=== PATIENT | female | born 1930 | race Caucasian/White ===

== ENCOUNTER → 2017-05-10 | Outpatient (CLI) | payer MEDICARE, BC | END | disposition home or self-care (01) | LOC: PTMAIN 11:29 | PROVIDERS: ATTEND Otolaryngology | DX: K21.9 Gastro-esophageal reflux disease without esophagitis (principal); J37.0 Chronic laryngitis | CPT/HCPCS: 31579 ==

== ENCOUNTER 2017-05-28 08:17 | Day surgery (SDC) | payer MEDICARE, BC ==
[2017-05-21 12:56] VITALS: BMI 26.2
--- NOTE | 2017-05-28 06:18 | HP ---
HISTORY AND PHYSICAL CHIEF COMPLAINT: Laryngeal lesion. HISTORY OF PRESENT ILLNESS: This patient is a pleasant 86-year-old female who was recently seen in my office complaining of having a constant foreign body sensation in her throat. The patient has a history of gastroesophageal reflux disorder and is a nonsmoker and never has used tobacco products. She denies any pain or any referred otalgia. At the time that she was seen in my office, clinical examination which included an indirect laryngoscopy as well as a videostroboscopy revealed evidence of a large polyp like lesion, which appears to be mobile and located on the right aryepiglottic fold. Recommend the patient undergo removal of this lesion and biopsy and subsequently laser of the lesion under general anesthesia. PAST MEDICAL HISTORY: Past medical history reveals that the patient has an allergy to IODINE and CONTRAST MEDIA. CURRENT MEDICATIONS: Current medications include Atorvastatin, one baby aspirin daily, Prilosec. PREVIOUS SURGERIES: Previous surgeries include cholecystectomy, hysterectomy, tonsillectomy and adenoidectomy, cataract surgery, and hemorrhoid surgery. REVIEW OF SYSTEMS: Review of systems reveals the cardiovascular system is negative. Respiratory systems is negative. Gastrointestinal system is positive for GERD, gastroesophageal reflux disorder. Metabolic endocrine system is positive for hypercholesterolemia. The remainder of the review of systems is unremarkable. PHYSICAL EXAM: This patient is a very pleasant 86-year-old female who was alert and cooperative. HEENT EXAMINATION: Patient is normocephalic. Tympanic membranes are normal. Middle ear spaces are free of any fluid or infection. Pupils are equal, round, react to light and accommodation. Extraocular movements within normal limits. Intranasal examination reveals moderate to severe septal deviation with bilateral compensatory hypertrophy of the inferior turbinates. Examination of the oropharynx and cranial nerves 2 through 12 are within normal limits. Examination of the hypopharynx and findings of the larynx are as described above and will not be repeated here. Palpation neck and remainder of the head and neck exam is unremarkable. CHEST/CARDIOVASCULAR: Both lung robin are clear to percussion and auscultation. Patient in regular sinus rhythm. S1 and S2 are present without evidence of any murmurs, S3s or S4s. Peripheral pulses are bilaterally symmetrical and within normal limits. ABDOMEN: There is no evidence the masses megaly or tenderness. The abdomen is soft. Skin is unremarkable. Musculoskeletal and neurological are within normal limits. PELVIC RECTAL EXAM: The pelvic rectal examination is deferred at this time because the patient has this done on a regular basis at her family physician's office. The remainder of physical exam is essentially unremarkable. IMPRESSION: Lesion of the larynx/hypopharynx. PLAN: The patient is scheduled undergo a suspension microlaryngoscopy, biopsy of lesion of the larynx/hypopharynx and CO2 laser of lesion of the larynx/hypopharynx under general anesthesia in the a.m. ATTENTION RNS IN THE PRE-SURGICAL AREA: I have ordered for this patient to receive 1000 mg of Ofirmev IV to be given once an intravenous line has been established. I have not ordered any pre-surgical prophylactic antibiotics for this patient. If the pharmacy department sends any pre-surgical prophylactic antibiotics to the pre-surgical area for this patient, that order should be cancelled and the medication returned to the pharmacy department. Please make sure that the patient's account is credited appropriately I have discussed the risks, benefits and alternative therapies for the above-mentioned procedure and for both sedation/analgesia as well as necessary blood product administration, if indicated, as they pertain to this patient. The patient has indicated his or her understanding and acceptance of the risks and procedures discussed. MMODL / IJN: [id number] /
[~2017-05-28 08:17] MED LIST: DEXAMETHASONE SOD PHOSPHATE 10 MG/ML 1 ML VIAL IV ONE; LACTATED RINGERS 1,000 ML IV SCH; MIDAZOLAM 2 MG/2 ML VIAL IV PRN; ONDANSETRON 4 MG/2 ML VIAL IVP ONE; Pre Op ABX Message 1 EACH MISC MISCELLANE ONE; SCOPOLAMINE 1.5MG/72HR PATCH TRANSDERM ONE; fentaNYL (PF) 50 MCG/ML 2 ML AMP IV PRN
[2017-05-28] MEDS ORDERED: LIDOCAINE 1% 20 ML VIAL (10MG/ML) FOR IV START INTRADERMA ONE (09:05)
[2017-05-28] MEDS ORDERED: ACETAMINOPHEN IV (For NPO) 1,000 MG/100 ML VIAL IVPB ONE (09:15)
[2017-05-28] MEDS ORDERED: PROPOFOL 10 MG/ML 20 ML VIAL IV ONE (10:02)
[2017-05-28] MEDS ORDERED: ROCURONIUM BROMIDE 10 MG/ML 10 ML VIAL IV ONE (10:02)
[2017-05-28] MEDS ORDERED: ePHEDrine SULFATE/0.9% NACL/PF 50 MG/5 ML SYRINGE IV ONE (10:02)
[2017-05-28] MEDS ORDERED: MIDAZOLAM 2 MG/2 ML VIAL ONE (10:02)
[2017-05-28] MEDS ORDERED: LIDOCAINE 1% INJ 10MG/ML (20 ML MDV) ONE (10:02)
[2017-05-28] MEDS ORDERED: METHYLENE BLUE 10 MG/ML (10 ML VIAL) ONE (10:02)
[2017-05-28] MEDS ORDERED: NEOSTIGMINE 1 MG/ML 10 ML VIAL ONE (10:02)
[2017-05-28] MEDS ORDERED: GLYCOPYRROLATE 0.2 MG/ML 2 ML VIAL ONE (10:02)
[2017-05-28] MEDS ORDERED: fentaNYL (PF) 50 MCG/ML 2 ML AMP ONE (10:02)
[2017-05-28] MEDS ORDERED: ACETAMINOPHEN IV (For NPO) 1,000 MG in EMPTY BAG 1 BAG IVPB ONE (10:35)
[2017-05-28 11:38] VITALS: TEMP 97.6
[2017-05-28] MEDS ORDERED: MORPHINE SULFATE 10 MG/ML SYRINGE IVP ONE (11:57)
[2017-05-28] MEDS ORDERED: ONDANSETRON 4 MG/2 ML VIAL IVP ONE (11:58)
[2017-05-28] MEDS ORDERED: LACTATED RINGERS 1,000 ML IV ONE (12:15)
[2017-05-28 12:34] VITALS: RESP 16
[2017-05-28 13:06] VITALS: BP 123/79; PULSE 94
--- NOTE | 2017-05-28 20:21 | OP ---
OPERATIVE REPORT DATE OF SURGERY: 05/28/2017. PREOPERATIVE DIAGNOSIS: Lesion of the larynx/hypopharynx (right aryepiglottic fold). POSTOPERATIVE DIAGNOSIS: Lesion of the larynx/hypopharynx (right aryepiglottic fold); final pathology pending. ANESTHESIA: General. OPERATIVE PROCEDURE: Suspension microlaryngoscopy with biopsy of lesion of the right aryepiglottic fold (larynx/hypopharynx) and CO2 lasering of the same lesion of hypopharynx. SURGEON: Dr. Isaac. COMPLICATIONS: None. OPERATIVE PROCEDURE: The patient was placed on the operating table in supine position. After uneventful induction of endotracheal intubation, satisfactory general anesthesia was obtained. Next the patient was draped in the usual and customary fashion. Following this, after insertion of a mouth guard and with care taken not to injure the patient's lips or teeth, the anterior commissure laryngoscope was introduced into the oropharynx with some difficulty, because of the patient's small mouth opening, the right and left piriform sinuses, base of tongue, valleculae and epiglottis were inspected. Next the tip of the laryngoscope was placed at the laryngeal introitus and the Lewy apparatus was attached to the handle of the laryngoscope and the laryngoscope was suspended on the patient's chest. Next, using the Zeiss operating microscope, inspection of the patient's true vocal cords revealed them to be completely free of any suspicious lesions. The laryngoscope was then backed out slightly, and with a slight amount of pressure on the patient's larynx, pushing it medially, this exposed the lesion in question, which appeared to be located on the right aryepiglottic fold. This lesion was grasped with a pair of up-biting forceps and several/multiple biopsies of the lesion were obtained and sent to Pathology in formalin for permanent sectioning. The remaining portion of the lesion was vaporized using the CO2 laser set on a 7-watt setting. Further inspection revealed no other suspicious lesions. The patient was given 10 mg of Decadron intraoperatively to reduce any postoperative edema. At this point the procedure was terminated. There were no intraoperative complications. The patient tolerated the procedure well and was returned to the recovery room in satisfactory condition. Final pathology is pending. MMODL / IJN: [id number] /
== END 2017-05-28 13:29 | disposition home or self-care (01) ==
LOC: OR 08:17
PROVIDERS: ATTEND Otolaryngology
DX: J38.7 Other diseases of larynx (principal); K21.9 Gastro-esophageal reflux disease without esophagitis; E78.00 Pure hypercholesterolemia, unspecified; M54.5 Low back pain; Z79.82 Long term (current) use of aspirin; Z79.899 Other long term (current) drug therapy; Z79.891 Long term (current) use of opiate analgesic; Z79.2 Long term (current) use of antibiotics; Z91.041 Radiographic dye allergy status; Z91.048 Other nonmedicinal substance allergy status
CPT/HCPCS: 88305; 31535; J2250; J1100; J2710; J2270; J2405; J2001; Q9968; J3010; J0131; J2704

== ENCOUNTER → 2018-10-09 | Outpatient (CLI) | payer MEDICARE, BC ==
--- NOTE | 2018-10-09 22:14 | MR ---
EXAMINATION TYPE: MR lumbar spine wo con DATE OF EXAM: 10/09/2018 COMPARISON: NONE HISTORY: Low back pain /Lt Leg pain for 2 years per patient. TECHNIQUE: Multiplanar, multisequence imaging of the lumbar spine is performed without IV contrast. FINDINGS: There is dextroconvex scoliosis centered at L2 level. There is slight grade 1 anterolisthes is L3 on L4. Multilevel disc desiccation is seen. Vertebral body heights are maintained. Mild disc sp stacia narrowing L3-L4 level is present with vacuum disc phenomena. The conus medullaris is normal in po sition and signal inferior L1 level. Mild multilevel anterior spurring. The bone marrow signal intens ity is within normal limits. Axial images at the T12-L1 level shows mild facet degenerative changes and ligamenta flava hypertroph y effacing posterior lateral thecal sac. Axial images at L1-L2 level show mild/moderate broad-based posterior disc protrusion effacing anterio r thecal sac with mild facet degenerative changes bilaterally. Axial images at the L2-L3 level show mild to moderate right greater than left facet degenerative chilel ges and ligamentum flavum hypertrophy effacing posterior lateral thecal sac. There is asymmetric mild left-sided anterior inferior neural foraminal narrowing. Axial images at the L3-L4 level shows spondylolisthesis with broad-based central disc protrusion and moderate facet degenerative changes and ligament flavum hypertrophy. There is effacement of the anter ior and posterior lateral thecal sac bilaterally on axial image 13 with mild the bilateral inferior n eural foraminal narrowing. Axial images at the L4-L5 level show moderate to advanced facet degenerative changes and ligamentous hypertrophy effacing posterior lateral thecal sac. There is broad-based right lateral disc protrusion . There is [id number] right-sided anterior inferior neural foraminal narrowing. Axial images at the L5-S1 level show [id number] facet degenerative changes bilaterally. Spinal canal is preserved. Bilateral neural foramina are patent. No suspicious incidental retroperitoneal findings are seen. IMPRESSION: Multilevel degenerative changes in the lumbar spine with findings most prominent at L3-L4 and L4-L5 levels as detailed above.
== END | disposition home or self-care (01) ==
LOC: RADMRIMAIN 11:47
PROVIDERS: ATTEND Orthopaedic Surgery Orthopaedic Surgery of the Spine
DX: M47.816 Spondylosis without myelopathy or radiculopathy, lumbar region (principal)
CPT/HCPCS: 72148

== ENCOUNTER → 2019-09-01 | Outpatient (CLI) | payer MEDICARE, BC | END | disposition home or self-care (01) | LOC: LABWHC1 06:52 | PROVIDERS: ATTEND Otolaryngology | DX: U07.1 COVID-19 (principal) ==

== ENCOUNTER → 2020-10-21 | Outpatient (CLI) | payer MEDICARE, BC ==
--- NOTE | 2020-10-21 13:14 | BD ---
EXAMINATION TYPE: Axial Bone Density DATE OF EXAM: 10/21/2020 COMPARISON: 07.04.2010 CLINICAL HISTORY: 89 YR OLD FEMALE.....ICD-10 CODE: N95.9 MENOPAUSAL DISORDER Height: 61.3 Weight: 130 FRAX RISK QUESTIONS: Secondary Osteoporosis: YES 3. Menopause before 45: YES RISK FACTORS HISTORY OF: Postmenopausal woman: TOTAL HYST AT AGE 30 Take estrogen and/or progesterone medications: YES, FOR A SHORT WHILE ONLY Lost more than 2 inches in height since high school: YES Frequent falls: USING CANE, IN PAIN, ELDERLY Hyperparathyroidism: NO? Adrenal Insufficiency: NO? MEDICATIONS: Additional Medications: MOBIC FOR PAIN, SPINAL INJECTIONS FOR PAIN, STATIN FOR CHOLESTEROL, VIT AND C ALCIUM, REFLUX MEDS. Additional History: SCOLIOSIS, INJECTIONS OF STEROIDAL PAIN RELIEF, REFLUX, CHOLESTEROL EXAM MEASUREMENTS: Bone mineral densitometry was performed using the [employer]SI[employer] System. Bone mineral density as measured about the Lumbar spine is: ----- L1-L4(G/cm2): 1.130 T Score Values are as follows: ----- L1: -2.3 ----- L2: -2.0 ----- L3: -0.3 ----- L4: 2.0 ----- L1-L4: -0.4 Bone mineral density has: Decreased -0.9% since study of: 07.04.2010 Bone mineral density about the R hip (g/cm2): 0.780 Bone mineral density about the L hip (g/cm2): 0.751 T Score values are as follows: -----R Neck: -1.7 -----L Neck: -1.7 -----R Total: -1.8 -----L Total: -2.0 Bone mineral density has: Decreased -17.5% since study of: 07.04.2010 FRAX%s: THERE IS A 11.6% CHANCE FOR A MAJOR OSTEOPOROTIC FX AND A 3.6% FOR HIPS.......PROBABILITY FOR FX IN 10 YRS TIME IMPRESSION: Osteopenia (T Score between -2.5 and -1). There is slightly increased risk of fracture and the patient may be considered for treatment. Re-Screen 2-5 years. NOTE: T-SCORE=SD OF THE YOUNG ADULT MEAN.
== END | disposition home or self-care (01) ==
LOC: RADBDWWP 09:26
PROVIDERS: ATTEND Internal Medicine
DX: M85.89 Other specified disorders of bone density and structure, multiple sites (principal)
CPT/HCPCS: 77080